=== PATIENT | female | born 1960 | race Caucasian/White ===

== ENCOUNTER 2022-05-24 13:05 | Emergency (ER) | payer BC ==
[2022-05-24] MEDS ORDERED: Cyclobenzaprine 10 MG Tab PO ONE ×2 (13:06→13:59)
[2022-05-24] MEDS ORDERED: Acetaminophen/oxyCODONE 325-5 MG Tab PO ONE (13:06)
[2022-05-24 13:53] VITALS: BP 147/91; PULSE 73
[2022-05-24] MEDS ORDERED: fentaNYL 100 MCG/2 ML SDV IVPUSH ONE ×2 (13:59→14:53)
[2022-05-24] MEDS ORDERED: Ondansetron 4 MG/2 ML SDV IVPUSH ONE (14:00)
[2022-05-24 14:38] LABS: ANION GAP 12.1 mEq/L (7-13)
[2022-05-24] MEDS ORDERED: Acetaminophen/oxyCODONE 325-5 MG Tab ONE (16:54)
[2022-05-24] MEDS ORDERED: Cyclobenzaprine 10 MG Tab ONE (16:54)
== END 2022-05-24 17:10 | disposition home or self-care (01) ==
LOC: DL.ED 13:05
DX: M54.50 Low back pain, unspecified (principal); K21.9 Gastro-esophageal reflux disease without esophagitis; Z91.040 Latex allergy status; Z79.899 Other long term (current) drug therapy; W18.30XA Fall on same level, unspecified, initial encounter
CPT/HCPCS: 36415; 71250; 72128; 72131; 74176; 80053; 85025; 96374; 96375; 96376; 99284; A9270; J2405; J3010